=== PATIENT | male | born 1995 | race Caucasian/White ===

== ENCOUNTER 2020-08-02 22:29 | Emergency (ER) | payer SELFPAY ==
[~2020-08-02] VITALS: Ht 185.4 cm; Wt 95.3 kg
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
[2020-08-02] MEDS ORDERED: MIDAZOLAM HCL 2 MG/2ML VIAL IM ONE (23:00)
[2020-08-02] MEDS ORDERED: HALOPERIDOL LACTATE INJ 5 MG/ML VIAL IM ONE (23:00)
[2020-08-02] MEDS ORDERED: HALOPERIDOL LACTATE INJ 5 MG/ML VIAL ONE ×2 (23:04→23:40)
[2020-08-02] MEDS ORDERED: MIDAZOLAM HCL 2 MG/2ML VIAL ONE ×2 (23:05→23:40)
[2020-08-02] MEDS ORDERED: LORAZEPAM INJ 2 MG/ML VIAL ONE (23:12)
--- NOTE | 2020-08-02 23:17 | NUR ---
PT KEEPS WALKING BACK AND FORTH, BOTHERING OTHER PATIENTS.
[2020-08-02] MEDS: LORAZEPAM INJ 2 MG/ML VIAL IM ONE (23:27)
[2020-08-02 23:36] LABS: BASOPHILS # (AUTO) 0.1 /CMM (0.0-0.2); BASOPHILS % (AUTO) 0.7 % (0.0-2.0); EOSINOPHILS % (AUTO) 0.6 % (0.0-6.0); HEMATOCRIT 48 % (39-51); HEMOGLOBIN 16.4 g/dL (13.5-17.5); LYMPHOCYTES # (AUTO) 2.3 /CMM (0.8-4.8); LYMPHOCYTES % (AUTO) 19.8 % (20.0-44.0); MEAN CORPUSCULAR HGB CONC 34 g/dl (31.0-36.0); MEAN CORPUSCULAR VOLUME 91 fL (80-96); MONOCYTES # (AUTO) 1.3 /CMM (0.1-1.30); MONOCYTES % (AUTO) 10.8 % (2.0-12.0); NEUTROPHILS # (AUTO) 7.9 /CMM (1.8-8.9); NEUTROPHILS % (AUTO) 68.1 % (43.0-81.0); PLATELET COUNT (AUTO) 351 /CMM (150-450); RED BLOOD CELL COUNT(AUTO) 5.25 MIL/uL (4.5-6.0); WHITE BLOOD COUNT (AUTO) 11.6 K/uL (4.3-11.0)
[2020-08-02 23:39] LABS: APPEARANCE,URINE CLEAR (CLEAR); BILIRUBIN,URINE NEGATIVE (NEGATIVE); BLOOD, URINE NEGATIVE Ery/uL (NEGATIVE); COLOR,URINE YELLOW (YELLOW); KETONES,URINE NEGATIVE (NEGATIVE); LEUKOCYTE ESTERASE ,URINE NEGATIVE (NEGATIVE); NITRITE, URINE NEGATIVE (NEGATIVE); PROTEIN,URINE NEGATIVE (NEGATIVE); UGLUCOSE NEGATIVE (NEGATIVE); UROBILINOGEN,URINE 0.2 EU/dL (0.2)
[2020-08-02 23:55] LABS: ALANINE AMINOTRANSFERASE 57 U/L (12-78); ALBUMIN 5.1 g/dL (3.4-5.0); ALCOHOL, BLOOD < 3 mg/dL (0-0); ALKALINE PHOSPHATASE 101 U/L (46-116); ASPARTATE AMINOTRANSFERASE 40 U/L (15-37); BILIRUBIN,DIRECT 0.2 mg/dL (0.0-0.2); BILIRUBIN,TOTAL 0.8 mg/dL (0.2-1.0); CALCIUM, SERUM 10.4 mg/dL (8.5-10.1); CHLORIDE 98 mmol/L (98-107); CREATININE 1.2 mg/dL (0.6-1.3); GLUCOSE 111 mg/dL (74-106); SODIUM SERUM 138 mmol/L (136-145); TOTAL PROTEIN, SERUM 9.4 g/dL (6.4-8.2); UREA NITROGEN, BLOOD 22 mg/dL (7-18)
[2020-08-02 23:56] LABS: ACETAMINOPHEN 0 ug/ml (10-30); SALICYLATE 2.6 mg/dL (2.8-20.0)
--- NOTE | 2020-08-03 00:04 | NUR ---
PT LAYED ON THE FLOOR. PT WAS BROUGHT TO HIS BED.
[2020-08-03 00:32] LABS: CARBON DIOXIDE 28 mmol/L (21-32)
--- NOTE | 2020-08-03 01:06 | NUR ---
PT RESTING IN BED, VSS.
[2020-08-03 05:14] VITALS: BP 127/73
--- NOTE | 2020-08-03 05:14 | NUR ---
Patient discharged to home in stable condition. Written and verbal after care instructions given. Patient verbalizes understanding of instruction. Pt ambulated with steady gait. vss.
== END 2020-08-03 05:15 | disposition home or self-care (01) ==
LOC: ER 22:33
DX: F15.10 Other stimulant abuse, uncomplicated (principal); H57.04 Mydriasis
CPT/HCPCS: 36415; 80048; 80076; 80305; 80307; 80329; 81001; 85025; 96372; 99283; G0480; J1630; J2060; J2250; 81000-TC